=== PATIENT | male | born 1965 | race Caucasian/White ===

== ENCOUNTER 2016-09-10 05:31 | Day surgery (SDC) | payer OTHER ==
[~2016-09-10] VITALS: Ht 170.2 cm; Wt 117.5 kg
--- NOTE | ~2016-09-10 | EKG ---
[address] [address] ELECTROCARDIOGRAM REPORT Name: SATYA BILLS Room #: 150-2 [facility].#: [id number] Admission: 09/10/16 Attend Phys: Rene Christopher MD Discharge: Date of : 63 Report #: [id number] THIS REPORT FOR: //name// [facility] Test Date: 2016-09-10 Test Time: 06:51:12 Pat Name: SATYA BILLS Department: Room: 150 2 Gender: M Help Desk Coordinator: DENISE : 1965 Requested By: Rene Christopher Order Number: [id number] MD: Reginald Stone Measurements Intervals [place] Rate: 62 P: -1 FL: 181 QRS: 50 QRSD: 102 T: 38 QT: 394 QTc: 400 Interpretive Statements Sinus rhythm No significant abnormality Compared to ECG 01/22/1994 20:30:00 No significant change was found Electronically Signed On 09-10-2016 9:29:13 CDT by Reginald Stone [email or web address] <ELECTRONICALLY SIGNED> By: Reginald Stone MD, [facility] 09/10/16 0929 0651 06 Reginald Stone MD, FACC /EPI
[~2016-09-10 05:31] MED LIST: DULERA 200 MCG/13 GM INH; FLONASE 0.05%50 MCG NASAL; MEN 50 PLUS MU1 EACH PO; METFORMIN HCL500 MG PO
[2016-09-10 07:46] VITALS: BP 133/79
[2016-09-10] MEDS ORDERED: HYDROCODONE-APA1 TA1 PO (09:41)
== END 2016-09-10 13:41 | disposition home or self-care (01) ==
LOC: TBA 05:31 → OR 05:31
DX: J34.2 Deviated nasal septum (principal); J34.89 Other specified disorders of nose and nasal sinuses
CPT/HCPCS: 50010; 50101; 50386; 50398; 50426; 56524; 56528; 62110; 62850; 70005

== ENCOUNTER 2017-06-20 13:07 | Inpatient (IN) | payer OTHER, SELFPAY ==
[~2017-06-20] VITALS: Ht 172.7 cm; Wt 123.4 kg
--- NOTE | ~2017-06-20 | HC ---
[facility] [place] [address] CONSULTATION Name: SATYA BILLS Room #: 456-P ADM IN M.R.#: [id number] Admission: 06/20/17 Attend Phys: Alexi Orta MD Discharge: Date of : 63 Report #: [id number] THIS REPORT FOR: //name// CC: Marky Emerson MD DATE OF SERVICE: 06/21/2017 REFERRING PROVIDER: Dr. Lawrence. REASON FOR CONSULTATION: Pneumonia. HISTORY OF PRESENT ILLNESS: Our group was asked to evaluate this patient in consultation while hospitalized in [facility]. History taken from review of his outpatient records, discussion with the patient and review of hospital course. The patient is a 52-year-old male known to our service, sees Dr. 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 Yesterday morning awoke from sleep after being in his usual state of health with severe chills, shortness of breath, cough with no sputum production and fever and came to the Emergency Department yesterday afternoon. The patient did require more oxygen than his baseline 3 liters, has been up to 5 liters overnight. The patient was brought to his primary care provider by family and was noted to have a left lower lobe infiltrate and was subsequently admitted for further management, started on Levaquin as well as bronchodilators. The patient notes some improvement in symptoms. There is no left-sided chest pain. No productive cough. No hemoptysis. No recent travels. No animal exposures at home. Denies any dental caries. ALLERGIES: PENICILLIN AND SPIRIVA. PAST MEDICAL HISTORY: 1. COPD. 2. Chronic hypoxemic respiratory failure. 3. Diabetes mellitus type 2. 4. Asbestos related pleural plaques. 5. Sleep apnea, on nocturnal CPAP therapy. MEDICATIONS: 1. Flonase. 2. Dulera. [facility] [address] [place] [address] CONSULTATION Name: SATYA BILLS Room #: 456-P [facility] IN M.R.#: [id number] Admission: 06/20/17 Attend Phys: Alexi Orta MD Discharge: Date of : 63 Report #: [id number] 3. Metformin. 4. Nebulized treatments. PAST SURGICAL HISTORY: Includes right carpal tunnel release. SOCIAL HISTORY: Significant for tobacco use, quitting in 2011 with about a 43-bmoo-[id number] history of tobacco use. No alcohol consumption. He is medically disabled. Previously a server service assistant. Lives with family. FAMILY HISTORY: Significant for father at 71 due to coronary artery disease. REVIEW OF SYSTEMS: CONSTITUTIONAL: Fever and chills as described in HPI. ENT: Denies any dental caries, is edentulous upper palate, no upper respiratory congestion, had a history of septal surgery 1 year ago. CARDIOVASCULAR: No chest pains, palpitations or cardiac history. GASTROINTESTINAL: No nausea, vomiting, diarrhea, constipation or abdominal pain. GENITOURINARY: No dysuria, no frequency or hematuria. INTEGUMENT: Denies any rash. MUSCULOSKELETAL: No joint pain, swelling, or cramping. Rest of 12-point review of systems is normal or as described in HPI. PHYSICAL EXAMINATION: VITAL SIGNS: Afebrile, pulse 100, respiratory 20, blood pressure 124/81, oxygen saturation 94% on 5 liters. GENERAL: This is an obese, middle-aged male, does not appear in distress. HEENT: Reveals an edentulous upper palate with no dental caries in the lower jaw. Mallampati 4 airway, no thrush or erythema. NECK: Thick, supple, no lymphadenopathy. LUNGS: Marked inspiratory crackles in the left. No wheezes. CARDIOVASCULAR: Heart was regular. No murmurs noted. ABDOMEN: Obese, soft, nontender, no masses or hepatosplenomegaly. EXTREMITIES: Warm, 2+ pulses, no edema. INTEGUMENT: Suggest no scleral edema over his upper back with no rashes. LABORATORY DATA: White blood cell count 17,000, hemoglobin 14, hematocrit 41, platelet count 180. Sodium 134, potassium 3.7, chloride 99, bicarbonate 25, BUN 12, creatinine 0.9, glucose 174. ProBNP was normal. Liver enzymes normal. CHEST X-RAY: Outside chest x-ray not available. Chest x-ray in the hospital did reveal significant left-sided infiltrate, some suggestion of a left mid lung cavitary process and some pleural thickening noted. IMPRESSION: [facility] [address] [place] [address] CONSULTATION Name: SATYA BILLS Room #: 456-P ADM IN M.R.#: [id number] Admission: 06/20/17 Attend Phys: Alexi Orta MD Discharge: Date of : 63 Report #: [id number] 1. Community-acquired pneumonia with some concern for abscess based on radiographic findings. 2. History of prior asbestos exposure with asbestos-related lung disease, probably pleural plaquing and/or some other chronic process. No older films to review. 3. Acute on chronic hypoxemic respiratory failure. 4. Chronic obstructive pulmonary disease with acute exacerbation. Baseline FEV1 is 1.14 liters or 36% of predicted. 5. Obesity. 6. Diabetes mellitus type 2. 7. Obstructive sleep apnea, on home BiPAP. SUGGESTIONS: 1. Noncontrast high-resolution CT of the chest to further evaluate infiltrates and possible interstitial lung disease. 2. O2 protocol. 3. Continue with Levaquin, may alter antimicrobial therapy to manage findings that may be present on CT. 4. Await sputum and blood cultures. 5. Urine for pneumococcal legionella antigen test. 6. Nasal swab for respiratory viral panel. 7. Ambulate as tolerated. 8. Flutter valve and aerosol treatments for airway clearance. 9. Further recommendations to follow. Dr. Emerson to assume care of this patient in a.. By: 1212 15 Rohan Tobar MD /nt
--- NOTE | ~2017-06-20 | EKG ---
[address] [address] ELECTROCARDIOGRAM REPORT Name: SATYA BILLS Room #: 456-P ADM IN M.R.#: [id number] Admission: 06/20/17 Attend Phys: Alexi Orta MD Discharge: Date of : 63 Report #: [id number] THIS REPORT FOR: //name// [facility] Test Date: 2017-06-20 Test Time: 14:54:11 Pat Name: SATYA BILLS Department: Room: 456 P Gender: M Cleaning Professional: AUBRIE : 1965 Requested By: David Guerra Order Number: [id number] MD: Reginald Stone Measurements Intervals [place] Rate: 102 P: 49 [place]: 164 QRS: 43 QRSD: 96 T: 15 QT: 323 QTc: 421 Interpretive Statements Sinus tachycardia Atrial premature complex Low voltage, precordial leads Abnormal R-wave progression, late transition Compared to ECG 09/10/2016 06:51:12 Atrial premature complex(es) now present Low QRS voltage now present Electronically Signed On 06-20-2017 17:36:25 CDT by Reginald Stone [email or web address] <ELECTRONICALLY SIGNED> By: Reginald Stone MD, [facility] 06/20/17 1736 1454 1454 Reginald Stone MD, [facility] /EPI
[~2017-06-20 13:07] MED LIST changes: +HYDROCODONE-APA1 TA1 PO
[2017-06-20 13:30] VITALS: BP 150/86
[2017-06-20 15:31] LABS: HEMATOCRIT 43.5 % (42.0-52.0); HEMOGLOBIN 14.4 gm/dL (14.0-18.0); MCH 26.8 pg (26.0-34.0); MCHC 33.1 g/dL (28.0-37.0); PLATELET COUNT 186 thou/uL (150-400); RBC 5.37 mil/uL (4.50-6.00); WBC 20.5 thou/uL (4.0-11.0)
[2017-06-20 15:47] LABS: INR 1.1; PROTIME 10.9 Seconds (9.3-11.4)
[2017-06-20 15:51] LABS: ABSOLUTE NEUTROPHILS 17.4 thou/uL (1.4-8.2)
[2017-06-20 15:54] LABS: ALBUMIN 3.7 g/dL (3.4-5.0); ANION GAP 10 mmol/L (7-16); BUN 12 mg/dL (7-18); CALCIUM 9.2 mg/dL (8.5-10.1); CHLORIDE 99 mmol/L (98-107); CO2 25 mmol/L (21-32); CREATININE 0.9 mg/dL (0.7-1.3); GLUCOSE 160 mg/dL (74-106); MAGNESIUM 1.6 mg/dL (1.8-2.4); POTASSIUM 3.9 mmol/L (3.5-5.1); SGOT 14 U/L (15-37); SGPT 27 U/L (30-65); SODIUM 134 mmol/L (136-145); TOTAL PROTEIN 7.7 g/dL (6.4-8.2); TROPONIN-I < 0.04 ng/mL (<0.06)
[2017-06-20 16:49] VITALS: BP 139/81
[2017-06-20 20:57] VITALS: BP 129/71
[2017-06-20 23:12] VITALS: BP 142/49
[2017-06-21 03:52] VITALS: BP 114/66
[2017-06-21 06:37] LABS: HEMATOCRIT 40.7 % (42.0-52.0); HEMOGLOBIN 13.5 gm/dL (14.0-18.0); MCH 27.3 pg (26.0-34.0); MCHC 33.2 g/dL (28.0-37.0); MCV 82.4 fL (80.0-100.0); RBC 4.94 mil/uL (4.50-6.00); RDW 14.2 % (10.5-14.5); WBC 17.3 thou/uL (4.0-11.0)
[2017-06-21 06:53] LABS: CREATININE 0.9 mg/dL (0.7-1.3); POTASSIUM 3.7 mmol/L (3.5-5.1)
[2017-06-21 08:00] VITALS: BP 124/81
[2017-06-21 16:00] VITALS: BP 122/70
[2017-06-21 19:56] VITALS: BP 125/77
[2017-06-22 03:40] VITALS: BP 115/68
[2017-06-22 05:11] LABS: BASOPHILS 0.3 % (0.0-2.0); HEMATOCRIT 37.4 % (42.0-52.0); HEMOGLOBIN 12.6 gm/dL (14.0-18.0); LYMPHOCYTES 8.8 % (24.0-44.0); MCH 27.4 pg (26.0-34.0); MCHC 33.7 g/dL (28.0-37.0); MCV 81.4 fL (80.0-100.0); MONOCYTES 8.4 % (1.0-8.0); PLATELET COUNT 158 thou/uL (150-400); POLYS 81.5 % (36.0-66.0); RDW 14.1 % (10.5-14.5); WBC 12.2 thou/uL (4.0-11.0)
[2017-06-22 05:18] LABS: CALCIUM 8.9 mg/dL (8.5-10.1); CREATININE 0.9 mg/dL (0.7-1.3); POTASSIUM 3.9 mmol/L (3.5-5.1)
[2017-06-22 08:00] VITALS: BP 129/77
[2017-06-22 19:38] VITALS: BP 139/84
[2017-06-23 04:48] VITALS: BP 114/60
[2017-06-23 07:23] VITALS: BP 132/84
[2017-06-23 07:45] LABS: HEMATOCRIT 37.4 % (42.0-52.0); HEMOGLOBIN 12.5 gm/dL (14.0-18.0); MCH 27.4 pg (26.0-34.0); MCHC 33.6 g/dL (28.0-37.0); MCV 81.6 fL (80.0-100.0); RBC 4.58 mil/uL (4.50-6.00); WBC 7.6 thou/uL (4.0-11.0)
[2017-06-23 07:58] LABS: CALCIUM 9.1 mg/dL (8.5-10.1); CREATININE 0.8 mg/dL (0.7-1.3); POTASSIUM 4.1 mmol/L (3.5-5.1)
[2017-06-23 12:17] VITALS: BP 132/84
[2017-06-23] MEDS ORDERED: MUCINEX600 MG PO (14:43)
[2017-06-23] MEDS ORDERED: LEVAQUIN 750 M750 MG PO (14:43)
[2017-06-23 14:54] VITALS: BP 132/84
[2017-06-23 15:53] VITALS: BP 132/84
[2017-06-26 03:08] LABS: ADENOVIRUS Negative (Negative); INFLUENZA A Negative (Negative); INFLUENZA B Negative (Negative); METAPNEUMOVIRUS Negative (Negative); PARAINFLUENZA 1 Negative (Negative); PARAINFLUENZA 2 Negative (Negative); PARAINFLUENZA 3 Negative (Negative); RHINOVIRUS Negative (Negative); RSV A Negative (Negative); RSV B Negative (Negative)
== END 2017-06-23 15:56 | disposition home or self-care (01) | DRG 871 ==
LOC: 4W 13:07
PROVIDERS: Hospitalist; Internal Medicine Pulmonary Disease
PROC: 5A09357 Assistance with Respiratory Ventilation, Less than 24 Consecutive Hours, Continuous Positive Airway Pressure (ICD-10-PCS; principal; 2017-06-21)
PROC: 5A09357 Assistance with Respiratory Ventilation, Less than 24 Consecutive Hours, Continuous Positive Airway Pressure (ICD-10-PCS; 2017-06-22)
PROC: 5A09357 Assistance with Respiratory Ventilation, Less than 24 Consecutive Hours, Continuous Positive Airway Pressure (ICD-10-PCS; 2017-06-23)
DX: A41.9 Sepsis, unspecified organism (principal); J18.1 Lobar pneumonia, unspecified organism; J96.21 Acute and chronic respiratory failure with hypoxia; Z68.41 Body mass index [BMI] 40.0-44.9, adult; E11.9 Type 2 diabetes mellitus without complications; E66.9 Obesity, unspecified; G47.33 Obstructive sleep apnea (adult) (pediatric); Z88.0 Allergy status to penicillin; Z88.8 Allergy status to other drugs, medicaments and biological substances; Z87.891 Personal history of nicotine dependence; Z82.49 Family history of ischemic heart disease and other diseases of the circulatory system; Z79.899 Other long term (current) drug therapy
CPT/HCPCS: 10047

== ENCOUNTER → 2017-12-19 | Outpatient (CLI) | payer OTHER, SELFPAY ==
[~2017-12-19] MED LIST changes: +LEVAQUIN 750 M750 MG PO; +MUCINEX600 MG PO
== END ==
LOC: RAD 09:45
DX: J44.9 Chronic obstructive pulmonary disease, unspecified (principal); J84.10 Pulmonary fibrosis, unspecified

== ENCOUNTER → 2018-08-22 | Outpatient (CLI) | payer OTHER ==
--- NOTE | 2018-08-25 08:56 | SLE ---
[facility] [place] [address] POLYSOMNOGRAPHY STUDY Name: SATYA BILLS Room #: REG [facility]#: [id number] Admission: 08/22/18 ������������������ Attend Phys: Jake Treadwell MD Discharge: ������������������ Date of : 63 Report #: [id number] THIS REPORT FOR: //name// CC: Jake Emerson MD DATE OF SERVICE: 08/22/2018 ATTENDING PHYSICIAN: Dr. Gage Emerson. The patient is 53 years old who weighs 260 pounds with a BMI of 42. The patient has a history of obstructive sleep apnea for which he is on BiPAP. The patient is also on home oxygen 2 liters on a 24-hour basis due to severe COPD. The patient's BiPAP machine malfunctioned; as a result, he was referred back for another requalification BiPAP titration study. During the night study, the patient spent 445 minutes in bed and slept for 345 minutes with a sleep efficiency of 77%. Sleep latency was 13 minutes with a REM latency of 134 minutes. Overall, sleep architecture showed normal stage 1 sleep, increased stage 2 sleep, absent N3 sleep and normal REM sleep. EKG monitoring revealed an average heart rate of 58 beats per minute with a maximum rate of 78 beats per minute. No sustained arrhythmias observed. PLMS were seen at an index of 31 per hour and 5 per hour caused EEG arousals. The patient was started on BiPAP at a pressure of 14/7. The study was performed on room air without supplemental oxygen. At a final BiPAP pressure of 17/7, the patient slept for 72.8 minutes including 16.5 minutes of REM sleep. The patient had supine sleep as well, but was limited. At the final pressure, the patient's AHI was reduced to 0 per hour. The patient's oxygen saturations remain in the high 80s with a lowest level of 81%. The patient would benefit from 1 liter of oxygen with the BiPAP. IMPRESSION: 1. Sleep apnea diagnosed previously. 2. Moderate periodic limb movements of sleep. 3. Nocturnal hypoxia secondary to combination of obstructive sleep apnea and underlying obstructive airway disease/hypoventilation. RECOMMENDATIONS: 1. BiPAP at a pressure of 17/7 with 1 liter of supplemental oxygen should be used on a nightly basis. 2. Follow up in 4-6 weeks to assess compliance with BiPAP and to document clinical improvement. [address] [address] POLYSOMNOGRAPHY STUDY Name: SATYA BILLS Room #: REG CLI [facility]#: [id number] Admission: 08/22/18 ������������������ Attend Phys: Jake Treadwell MD Discharge: ������������������ Date of : 63 Report #: [id number] 3. Weight loss is strongly advised. 4. Avoid CREW TEAM MEMBER depressants. 5. Cautioned regarding driving until symptoms of sleep apnea have resolved with the use of BiPAP. 6. The patient should also be further evaluated for any symptoms of restless legs during the day. ��������������������������������������������� <ELECTRONICALLY SIGNED> ���������������������������������������� By: Jake Treadwell MD ��������������������������������������������� 08/25/18 0856 1800 1815 Jake Treadwell MD /nt
== END ==
LOC: SLEEPLAB 11:11
DX: G47.33 Obstructive sleep apnea (adult) (pediatric) (principal); J44.9 Chronic obstructive pulmonary disease, unspecified; G47.61 Periodic limb movement disorder; R09.02 Hypoxemia

== ENCOUNTER → 2019-01-02 | Outpatient (CLI) | payer OTHER | LOC: ULTRA 07:51 | DX: R16.1 Splenomegaly, not elsewhere classified (principal); J44.9 Chronic obstructive pulmonary disease, unspecified; E11.9 Type 2 diabetes mellitus without complications; G47.30 Sleep apnea, unspecified; Z87.01 Personal history of pneumonia (recurrent); Z87.891 Personal history of nicotine dependence; E66.9 Obesity, unspecified; Z68.34 Body mass index [BMI] 34.0-34.9, adult ==

== ENCOUNTER → 2019-03-02 | Outpatient (CLI) | payer OTHER | LOC: RAD 16:04 | DX: J98.4 Other disorders of lung (principal); I51.7 Cardiomegaly ==

== ENCOUNTER 2019-03-17 09:44 | Inpatient (IN) | payer OTHER ==
[~2019-03-17] VITALS: Ht 172.7 cm; Wt 118.6 kg
[2019-03-17 09:46] VITALS: BP 140/82
[2019-03-17 10:34] LABS: HEMATOCRIT 38.8 % (42.0-52.0); HEMOGLOBIN 12.4 gm/dL (14.0-18.0); MCH 26.9 pg (26.0-34.0); PLATELET COUNT 267 thou/uL (150-400); RBC 4.62 mil/uL (4.50-6.00); RDW 14.1 % (10.5-14.5); WBC 11.9 thou/uL (4.0-11.0)
[2019-03-17 10:49] LABS: ANION GAP 10 mmol/L (7-16); BUN 14 mg/dL (7-18); CALCIUM 9.6 mg/dL (8.5-10.1); CHLORIDE 96 mmol/L (98-107); CO2 26 mmol/L (21-32); CREATININE 0.8 mg/dL (0.7-1.3); GLUCOSE 169 mg/dL (74-106); POTASSIUM 4.3 mmol/L (3.5-5.1); SODIUM 132 mmol/L (136-145)
[2019-03-17 10:54] LABS: ALBUMIN 3.2 g/dL (3.4-5.0); SGOT 11 U/L (15-37); SGPT 29 U/L (30-65); TOTAL BILIRUBIN 1.4 mg/dL (<0.1-1.0); TOTAL PROTEIN 7.6 g/dL (6.4-8.2); TROPONIN-I <0.06 ng/mL (<0.06)
[2019-03-17 11:14] LABS: BE(vivo) 2.1 mmol/L (-2 to +3); HCO3 25.9 mmol/L (22.0-26.0); PCO2 37.8 mmHg (35.0-45.0); PO2 78.2 mmHg (80.0-100.0); pH 7.454 (7.360-7.450); sO2 96.1 % (92.0-98.0)
[2019-03-17 11:14] LABS: ABSOLUTE NEUTROPHILS 8.4 thou/uL (1.4-8.2)
[2019-03-17 11:15] LABS: ANISOCYTOSIS SLIGHT; POIKILOCYTOSIS SLIGHT
[2019-03-17 11:38] VITALS: BP 130/81
[2019-03-17 13:31] VITALS: BP 126/80
--- NOTE | 2019-03-17 13:31 | 2DMMODE ---
[facility] [place] [address] 2 D/M-MODE ECHOCARDIOGRAM Name: SATYA BILLS Room #: 170-2 ADM IN [facility].#: [id number] Admission: 03/17/19 Attend Phys: Mt Mckeon Discharge: Date of : 63 Report #: [id number] THIS REPORT FOR: //name// APPROVED REPORT Study performed: 03/17/2019 12:13:52 EXAM: Comprehensive 2D, Doppler, and color-flow Echocardiogram Patient Location: ER Room #: 2 Status: routine BSA: 2.30 HR: 111 bpm BP: 138/79 mmHg Rhythm: Tachycardia Other Information Study Quality: Technically Difficult Indications Congestive Heart Failure COPD Diabetes Dyspnea Pericardial Effusion Chest Pain Echo Enhancing Agent Indication: Endocardial border delineation Agent(s) / Amount(s) Used: Optison 3 cc 2D Dimensions IVSd: 11.30 (7-11mm) LVOT Diam: 21.28 (18-24mm) LVDd: 46.66 mm PWd: 10.99 (7-11mm) Ascending Ao: 32.97 (22-36mm) LVDs: 37.72 (25-40mm) Aortic Root: 31.06 mm IVC: 28.00 mm Aortic Valve AoV Peak Shaq.: 1.39 m/s AO Peak Gr.: 7.69 mmHg LVOT Max P.34 mmHg LVOT Max V: 0.91 m/s HARDIK Vmax: 2.34 cm2 Mitral Valve [facility] [address] [place] [address] 2 D/M-MODE ECHOCARDIOGRAM Name: SATYA BILLS Room #: [facility]2 ADM IN ..#: [id number] Admission: 03/17/19 Attend Phys: Mt Mckeon Discharge: Date of : 63 Report #: [id number] E/A Ratio: 0.7 MV Decel. Time: 237.57 ms MV E Max Shaq.: 0.68 m/s MV A Shaq.: 0.94 m/s MV PHT: 68.90 ms IVRT: 138.41 ms Pulmonary Valve PV Peak Shaq.: 1.00 m/s PV Peak Gr.: 4.03 mmHg Pulmonary Vein P Vein S: 0.52 m/s P Vein A: 0.31 m/s P Vein D: 0.32 m/s P Vein A Dur.: 96.9 msec P Vein S/D Ratio: 1.63 Tricuspid Valve TR Peak Shaq.: 2.49 m/s TR Peak Gr.: 24.86 mmHg PA Pressure: 35.00 mmHg Left Ventricle The left ventricle is normal size. There is normal LV segmental wall motion. There is normal left ventricular wall thickness. The left ventricular systolic function is normal. The left ventricular ejection fraction is within the normal range. LVEF is 55%. Mild diastolic dysfunction is present (impaired relaxation pattern). Right Ventricle The right ventricle is normal size. The right ventricular systolic function is normal. Atria The left atrium size is normal. The right atrium size is normal. Aortic Valve The aortic valve is normal in structure. No aortic regurgitation is present. There is no aortic valvular stenosis. Mitral Valve The mitral valve is normal in structure. There is no mitral valve regurgitation noted. No evidence of mitral valve stenosis. Tricuspid Valve The tricuspid valve is normal in structure. There is trace to mild [facility] [address] [place] [address] 2 D/M-MODE ECHOCARDIOGRAM Name: SATYA BILLS Room #: 170-2 ADM IN ..#: [id number] Admission: 03/17/19 Attend Phys: Mt Mckeon Discharge: Date of : 63 Report #: [id number] tricuspid regurgitation. Estimated PAP 35 mmHg. There is mild pulmonary hypertension. Pulmonic Valve The pulmonary valve is normal in structure. There is no pulmonic valvular regurgitation. Great Vessels The aortic root is normal in size. IVC is dilated and collapses <50% with inspiration. Pericardium Moderate to large pericardial effusion. <Conclusion> Limited study The left ventricular systolic function is normal. There is normal LV segmental wall motion. LVEF is 55%. The aortic valve is normal in structure. No aortic regurgitation or stenosis. The mitral valve is normal in structure. No mitral valve regurgitation. There is trace to mild tricuspid regurgitation. Estimated pulmonary artery pressure of 35 mmHg. Moderate to large pericardial effusion without clear cut findings to suggest tamponade physiology . <ELECTRONICALLY SIGNED> By: Reginald Stone MD, FACC 03/17/191330 30 30 Reginald Stone MD, FACC /INF
[2019-03-17 13:40] VITALS: BP 144/78
[2019-03-17 16:08] VITALS: BP 122/75
--- NOTE | 2019-03-17 16:59 | NUR ---
PT admitted to 355 , alert and oriented. with patient. pt on 5L oxygen. Fall risk paperwork signed. pt oriented to room. Call light and table within reach. admission, Vitals signs and assessment completed. pt denies any needs. will continue to monitor.
[2019-03-17 19:54] VITALS: BP 140/75
[2019-03-18 04:22] VITALS: BP 124/71
--- NOTE | 2019-03-18 05:03 | NUR ---
PT MAKING PROGRESS TOWARDS GOALS. LUNGS DIMINISHED THROUGHOUT. O2 AT 5L PER NC. PT STATED "I THINK THIS IS THE BEST I'VE SLEPT ALL WEEK!" DENIES ANY SIGNIFICANT SOA WHEN UP TO USE THE BATHROOM.
[2019-03-18 07:56] VITALS: BP 126/76
--- NOTE | 2019-03-18 12:09 | NUR ---
INITIAL ASSESSMENT: SW reviewed chart and spoke with nursing and attending physician. Pt was admitted from home due to exacerbation of COPD. Pt is on IV lasix. Discharge home is anticipated for tomorrow. SW met with pt and spouse at bedside. Introduced role of SW. Pt is alert/orientated x 4. Pt reports he and his live at home. Prior to admission, pt was independent with ADLs. No use of DME for ambulation. Pt has home O2 in place through [employer]. Pt is normally on 4L continuously. Pt also has a bipap at home. No hx of services or post-acute placement. Pt's PCP is Dr. Anabell Rivas. Plan is for pt to discharge home when medically stable. SW is following to assist as needed with discharge planning.
[2019-03-18 16:19] VITALS: BP 120/65
--- NOTE | 2019-03-18 16:57 | NUR ---
ASSUMED PATIENT CARE AT 0700. A/O X4. 4L/NC. SOB WITH EXERTION. SLOWLY TOWARDS POC GOALS.
[2019-03-18 20:05] VITALS: BP 117/68
[2019-03-18 23:09] LABS: GLYCOHEMOGLOBIN (HGB A1C) 7.6 % (4.8-5.6)
[2019-03-19 04:37] VITALS: BP 132/69
--- NOTE | 2019-03-19 06:22 | NUR ---
PATIENT IS PROGRESSING IN HIS CARE PLAN. VITAL SIGNS STABLE WITH PATIENT HAVING NO COMPLAINTS OF PAIN OR NAUSEA. FULLY ORIENTED, PATIENT IS ABLE TO CALL APPROPRIATELY FOR NEEDS AND FULLY PARTICIPATE IN CARE. BREATHING STABLE ON FOUR LITERS NASAL CANNULA WHICH IS PATIENTS BASELINE, EVIDENCED BY ASSESSMENT AND CONTINUOUS SATURATION MONITOR. PATIENT TOLERATED CPAP THROUGHOUT THE NIGHT. UP AD EVA THROUGHOUT SHIFT, PATIENT IS STRONG AND BALANCED WHEN AMBULATING. CONTINUE PLAN OF CARE.
[2019-03-19 07:17] VITALS: BP 142/73
[2019-03-19 09:32] LABS: ABSOLUTE NEUTROPHILS 7.4 thou/uL (1.4-8.2); BASOPHILS 0.5 % (0.0-2.0); EOSINOPHILS 1.7 % (0.0-3.0); HEMATOCRIT 38.1 % (42.0-52.0); HEMOGLOBIN 12.7 gm/dL (14.0-18.0); LYMPHOCYTES 15.9 % (24.0-44.0); MCH 27.7 pg (26.0-34.0); MCHC 33.4 g/dL (28.0-37.0); MCV 82.9 fL (80.0-100.0); MONOCYTES 9.9 % (1.0-8.0); PLATELET COUNT 321 thou/uL (150-400); RBC 4.59 mil/uL (4.50-6.00); RDW 13.8 % (10.5-14.5); WBC 10.3 thou/uL (4.0-11.0)
[2019-03-19 09:42] LABS: POTASSIUM 3.5 mmol/L (3.5-5.1)
--- NOTE | 2019-03-19 10:02 | NUR ---
Nutrition: Assessed for BMI 40 kg/m2. Admit: SOB, pneumonia, tachy. Hx: DM II. On 1000 mg metformin BID, SSI. A1c 7.6% per 03/17. States BG numbers normally well controlled, but the last few months are "sweta high." Denies any change in diet/food intake. Weight is down from 272# per 06/2017 to 263# this admit. He reports OP education when first diagnosed w/ DM, so he and know. Declined diet review, but did allow RD to discuss simple goals of avoiding juice and other sugary beverages, choose less bread/starch, replace starchy vegetables w/ non starchy varieties. Educated on goal of heart healthy menus to greatly reduce Na intake to help prevent fluid retention. Possible CHF? No interest in detailed nutrition ed. Encouraged him to notify RN if he changes his mind. Eating 100% of all meals so far. Low nutrition risk.
[2019-03-19 15:18] VITALS: BP 110/67
--- NOTE | 2019-03-19 16:32 | NUR ---
SW reviewed chart and spoke with nursing and attending physician. Pt is slowly progressing towards goals for discharge. Pt will discharge home when medically stable. Pt has home O2/cpap in place at home. SW is following to assist as needed with discharge planning.
--- NOTE | 2019-03-19 17:07 | EKG ---
[address] [address] ELECTROCARDIOGRAM REPORT Name: SATYA BILLS Room #: 355-P ADM IN .R.#: [id number] Admission: 03/17/19 Attend Phys: Alejandro Chiang MD Discharge: Date of : 63 Report #: [id number] THIS REPORT FOR: //name// [facility] ED Test Date: 2019-03-17 Test Time: 09:51:04 Pat Name: SATYA BILLS Department: Room: [facility] Gender: M Email Production Consultant: REBEKAH : 1965 Requested By: Martin Li Order Number: [id number] MD: Eloy Bird Measurements Intervals [place] Rate: 107 P: 19 CT: 152 QRS: 46 QRSD: 90 T: 40 QT: 306 QTc: 409 Interpretive Statements Sinus tachycardia Low voltage, precordial leads Minimal ST depression Compared to ECG 06/20/2017 14:54:11 Electronically Signed On 03-19-2019 17:07:05 PLATER APPRENTICE by Eloy Bird [email or web address] <ELECTRONICALLY SIGNED> By: Eloy Bird MD 03/19/19 1707 0951 Eloy Bird MD /NELL
--- NOTE | 2019-03-19 17:25 | EKG ---
[address] [address] ELECTROCARDIOGRAM REPORT Name: SATYA BILLS Room #: 355- ADM IN M.R.#: [id number] Admission: 03/17/19 Attend Phys: Alejandro Chiang MD Discharge: Date of : 63 Report #: [id number] THIS REPORT FOR: //name// [facility] Test Date: 2019-03-19 Test Time: 09:07:25 Pat Name: SATYA BILLS Department: Room: 355 P Gender: M Children Teacher: DEMARIO : 1965 Requested By: Alejandro Chiang Order Number: [id number] MD: Eloy Bird Measurements Intervals [place] Rate: 145 P: CA: QRS: 46 QRSD: 93 T: QT: 303 QTc: 471 Interpretive Statements Atrial fibrillation Nonspecific T abnormalities, inferior leads Compared to ECG 06/20/2017 14:54:11 T-wave abnormality now present Sinus tachycardia no longer present Atrial premature complex(es) no longer present Electronically Signed On 03-19-2019 17:25:17 BOX CAR BRACER by Eloy Bird [email or web address] <ELECTRONICALLY SIGNED> By: Eloy Bird MD 03/19/19 1725 0907 0907 Eloy Bird MD /EPI
[2019-03-19 19:14] VITALS: BP 143/72
[2019-03-20 04:30] VITALS: BP 114/71
--- NOTE | 2019-03-20 06:04 | NUR ---
PATIENT IS PROGRESSING IN HIS CARE PLAN AND IS ANXIOUS FOR POSSIBLE DISCHARGE SOON. VITAL SIGNS STABLE WITH PATIENT HAVING NO COMPLAINTS OF PAIN OR NAUSEA. PATIENT REMAINS FULLY ORIENTED AND IS ABLE TO CALL FOR NEEDS AND PARTICIPATE FULLY IN CARE. BREATHING STABLE ON HOME DOSE OF OXYGEN EVIDENCED BY ASSESSMENT AND SPOT OXYGENATION CHECKS. PATIENT TOLERATED HOME CPAP THROUGHOUT THE NIGHT. PATIENT REMAINED IN CONTROLLED SINUS RHYTHM THROUGHOUT THE SHIFT WITH NO EVENTS NOTED. CONTINUE PLAN OF CARE.
[2019-03-20 08:04] VITALS: BP 112/71
[2019-03-20] MEDS ORDERED: VERAPAMIL HCL 880 M1 PO (10:12)
[2019-03-20 10:20] VITALS: BP 112/71
--- NOTE | 2019-03-20 10:58 | NUR ---
progressing towards poc goals. dc home soon.
== END 2019-03-20 12:23 | disposition home or self-care (01) | DRG 189 ==
LOC: ER 09:44 → 3W 12:06 → EROBS 12:06 → 3W 13:33
PROVIDERS: Physician Assistant; ADMIT Hospitalist
PROC: 5A09357 Assistance with Respiratory Ventilation, Less than 24 Consecutive Hours, Continuous Positive Airway Pressure (ICD-10-PCS; principal; 2019-03-17)
PROC: 5A09357 Assistance with Respiratory Ventilation, Less than 24 Consecutive Hours, Continuous Positive Airway Pressure (ICD-10-PCS; 2019-03-19)
DX: J96.21 Acute and chronic respiratory failure with hypoxia (principal); I31.3 Pericardial effusion (noninflammatory); Z68.41 Body mass index [BMI] 40.0-44.9, adult; E87.1 Hypo-osmolality and hyponatremia; J44.0 Chronic obstructive pulmonary disease with (acute) lower respiratory infection; I48.20 Chronic atrial fibrillation, unspecified; E87.6 Hypokalemia; G47.33 Obstructive sleep apnea (adult) (pediatric); E78.5 Hyperlipidemia, unspecified; E11.9 Type 2 diabetes mellitus without complications; E66.01 Morbid (severe) obesity due to excess calories; E87.8 Other disorders of electrolyte and fluid balance, not elsewhere classified; Z99.81 Dependence on supplemental oxygen; Z87.891 Personal history of nicotine dependence; Z79.84 Long term (current) use of oral hypoglycemic drugs; Z79.899 Other long term (current) drug therapy; Z88.0 Allergy status to penicillin; Z88.8 Allergy status to other drugs, medicaments and biological substances; Z87.01 Personal history of pneumonia (recurrent); Z79.82 Long term (current) use of aspirin; Z83.3 Family history of diabetes mellitus; Z82.49 Family history of ischemic heart disease and other diseases of the circulatory system; Z80.8 Family history of malignant neoplasm of other organs or systems; J44.9 Chronic obstructive pulmonary disease, unspecified
CPT/HCPCS: 10879

== ENCOUNTER → 2020-11-11 | Outpatient (CLI) | payer OTHER ==
[~2020-11-11] MED LIST changes: +VERAPAMIL HCL 880 M1 PO
== END ==
LOC: RAD 11:21
PROVIDERS: ATTEND Nurse Practitioner
DX: M43.8X6 Other specified deforming dorsopathies, lumbar region (principal); M54.5 Low back pain

== ENCOUNTER → 2021-02-08 | Outpatient (CLI) | payer OTHER | LOC: MRI 02-01 12:56 | PROVIDERS: ATTEND Nurse Practitioner | DX: J96.11 Chronic respiratory failure with hypoxia (principal); R42 Dizziness and giddiness; R51.9 Headache, unspecified; H53.9 Unspecified visual disturbance ==